=== PATIENT | male | born 1990 | race Two or more races ===

== ENCOUNTER 2021-05-07 13:29 | Outpatient (CLI) | payer OTHER ==
--- NOTE | 2021-05-07 14:41 | SLEEP CARE CONSULTATION ---
Information from patient questionnaire entered by Christy Hayes. I have reviewed and concur with the information entered by Christy Hayes. This document represents the service I personally performed and the decisions made by me, Ani Hawley ARNP. History of Present Illness Service Date and Time: 05/07/2021 1329 Reason for Visit: New patient Chief Complaint: reports: Unrefreshed sleep, Snoring, Excessive daytime sleepiness. denies: Observed pauses in breathing Date of Onset: 8 months Usual bedtime: 2 am Time it takes to fall asleep: 30-60 minutes Snores at night: Yes Observed to quit breathing while asleep: No Sleeps alone due to snoring: No Number of times waking at night: 2 Reasons for waking at night: reports: Snoring, Other (unknown reasons) Toss, Turn, or Twitch while sleeping: Yes Recalls having dreams: Yes Usually gets out of bed at: 10 am - 12 pm Feels refreshed in the morning: No Morning headache: No Sleepy or fatigued during the day: Yes Ever fallen asleep while driving: No (no drowsy driving) Takes day naps: No Dreams during day naps: No Prior sleep studies: No Additional HPI information: I had the pleasure of seeing NICKOLAS MEDRANO today regarding the possibility of him having a sleep disorder. His current complaints are unrefreshed sleep, snoring and excessive daytime sleepiness. He does not feel like is sleep is good, wakes up feeling tired. - Parasomnia Symptoms Ever been unable to move upon waking from sleep: Yes Walks in sleep: No Talks in sleep: No Ever acted out dreams in sleep: Yes Ever felt weak in the knees when startled or emotional: No Bothered by creepy, crawly, restless sensations in legs: No Problems with memory or concentration: Yes (mostly just trying to remember stuff) Subjective Initial [place] Sleepiness Scale score: 8 (in 2020) Past Medical History Past Medical History: reports: Other Social History The patient's occupation is a [employer]. Patient is Single and lives in [place]. Have you smoked in the past 12 months: No Cigarettes per day (20/pack): 10 Years of smokin Quit date: 05/2019 Smoking Pack Years: 2.0 Alcohol use: Yes Alcohol amount and frequency: 1 - 2 drinks weekly Caffeine use: Yes Caffeine amount and frequency: 1 drink daily Family History Family history of sleep disordered breathing: No Allergies and Home Medications Drug allergies reviewed: Yes (NKDA) Home medication list reviewed: Yes (Zyrtec daily; Melatonin for sleep as needed) Review of Systems Cardiovascular: denies: high blood pressure Gastrointestinal: reports: heartburn Neurological: denies: headaches Psychiatric: denies: anxiety, depression, mood disorder Ear/Nose/Throat: reports: nasal congestion, wisdom teeth removed. denies: injury to nose, tonsillectomy Endocrine: denies: thyroid disease Musculoskeletal: reports: neck pain Immunologic: reports: sneezing, allergies to food or environment (seasonal allergies) Physical Exam Blood Pressure: 120/85 Cuff size: wrist Heart Rate: 87 O2 Saturation: 97 Height: 5 ft 5 in Weight: 192 lb Body Mass Index: 31.9 BMI Classification: Obese Neck circumference: 17.25 (inches) Nostrils: patent to airflow Mouth and throat: narrow oropharynx Soft palate: long Hard palate: normal Uvula: normal Uvula visualization: 50% Mallampati Class II Tongue: enlarged in size with teeth johnston on lateral edges Tonsils: 2+ Neck: normal w/o lymphadenopathy or thyromegaly Heart: regular rate and rhythm Lungs: clear bilaterally Impression and Plan 1. Suspected Obstructive Sleep Apnea-Hypopnea Syndrome, as suggested by a history of loud and irregular snoring, unrefreshed sleep, cognitive impairment, and excessive daytime sleepiness. Narrow oropharynx and obesity are common predisposing factors for obstructive sleep apnea-hypopnea syndrome. I recommend proceeding to polysomnography to confirm the diagnosis and to assess severity. If the patient has significant sleep disordered breathing, a manual CPAP titration study will also be performed to find the optimal treatment pressure. I informed the patient of what the sleep studies involve and after some discussion, obtained agreement to proceed. The pathophysiology of obstructive sleep apnea-hypopnea syndrome was discussed with the patient and health risks of cardiovascular and cerebrovascular disease if not treated. AASM brochure for obstructive sleep apnea-hypopnea syndrome given and reviewed. 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 Patient agreed to plan. * Schedule polysomnography +- manual CPAP titration study and return in 1-2 weeks after the study to discuss result and initiate therapy. * Avoid long distance driving or driving when feeling sleepy. * Avoid alcohol, sedative and muscle relaxant around bedtime. * Attempt to lose weight. * Review instructions provided by trained office staff on how to prepare for the sleep study. * Return for follow-up after sleep study completed. Counseling Topics: Weight loss health impact Visit Type: In Office Time Spent with Patient (minutes): 30 Provider Statement: I spent 100% of the Face to Face Visit with the patient with greater than 50% spent counseling the patient and coordination of care.
[2021-05-07 14:42] VITALS: BP 120/85
== END 2021-05-07 13:30 | disposition home or self-care (01) ==
LOC: SC 13:29
PROVIDERS: ATTEND Nurse Practitioner Family
DX: G47.10 Hypersomnia, unspecified (principal); R06.83 Snoring; G47.8 Other sleep disorders; R41.89 Other symptoms and signs involving cognitive functions and awareness; E66.9 Obesity, unspecified; Z68.31 Body mass index [BMI] 31.0-31.9, adult
CPT/HCPCS: 99203; 99212

== ENCOUNTER 2021-05-13 13:50 | Outpatient (CLI) | payer OTHER | END 2021-05-13 13:51 | disposition home or self-care (01) | LOC: SC 13:50 | PROVIDERS: ATTEND Nurse Practitioner Family | DX: G47.33 Obstructive sleep apnea (adult) (pediatric) (principal); R09.02 Hypoxemia | CPT/HCPCS: 95806 ==

== ENCOUNTER 2021-05-22 13:36 | Outpatient (CLI) | payer OTHER ==
[2021-05-22 14:10] VITALS: BP 124/75
--- NOTE | 2021-05-22 14:10 | SLEEP CARE CONSULTATION ---
Information from patient questionnaire entered by Tracie Johnson. I have reviewed and concur with the information entered by Tracie Johnson. This document represents the service I personally performed and the decisions made by me, Ani Hawley ARNP. History of Present Illness Service Date and Time: 05/22/2021 1336 Initial [place] Sleepiness Scale score: 8 (in 2020) Current [place] Sleepiness Scale score: 4 Additional HPI information: NICKOLAS MEDRANO returns for follow up and results of the recently performed home sleep study. I explained the pathophysiology behind obstructive sleep apnea. We then spent quite a bit of time discussing different treatment options. For mild obstructive sleep apnea, surgery and oral appliance are alternatives to nasal CPAP therapy but in moderate or severe cases, nasal CPAP is the most effective and reliable treatment. I reviewed the impact of weight changes on sleep apnea and strongly recommended losing weight. After some discussion, the patient opted to go with the nasal CPAP therapy. Nasal autoCPAP set at 4-15 cmH20 will be ordered with rationale explained. A manual titration study will be ordered if unable to find optimal pressure with office adjustments. I explained how CPAP machine works with sample devices [employer] Dreamstation and [id number] and what to expect when using the machine. Using CPAP every night in order to get used to it was emphasized. Patient advised to put CPAP mask on before getting into bed so as not to fall asleep without CPAP. To assist acclimation to CPAP use, it could also be used for a short time during day while reading or watching TV. The patient was instructed to call the CPAP supplier to discuss any mechanical problem that may occur. If the mask given is uncomfortable or is difficult to keep on through the night even with adjustment, contact the CPAP supplier as many will replace with another mask style if notified before 30 days. If snoring or perceives is not getting enough air or too much air from the machine, notify this office. AASM patient education PAP tips reviewed and given to patient. Patient does not drink alcohol. Patient was cautioned about risks of drowsy driving until sleepiness symptoms resolve. Sleep Study - Results Type of Sleep Study: Home sleep study Prior sleep studies: Yes Year and Where: 05/2021 [facility] Care Polysomnography/Home Sleep Study results: Physician Impression: The quality of the study is good. The length of the study is not optimal (< 240 minutes). Please also see the tabulated and graphic data. 1. Obstructive Sleep Apnea-Hypopnea (ICD-10 G47.33), mild, with an AHI of 6.8/hr and oneal SaO2 of 89%. During the study, the patient had 2 apneas (2 obstructive, 0 central, 0 mixed) and 21 hypopneas. The longest episode lasted 91.5 seconds. The patient slept almost exclusively in supine position (supine AHI was 7.1 and non-supine, 0.00). 2. Hypoxemia (ICD-10 R09.02), mild, with the lowest oxygen saturation of 89 % and 0.0 minutes with SaO2 under 90%. Baseline oxygen saturation was normal (Average oxygen saturation was 95%). Allergies and Home Medications Home medication list reviewed: Yes (Tricor started 1 week ago) Review of Systems Review of systems same as previous: Yes (no changes) Physical Exam Blood Pressure: 124/75 Heart Rate: 98 O2 Saturation: 97 Height: 5 ft 5 in Weight: 193 lb (with boots) Body Mass Index: 32.1 BMI Classification: Obese Impression and Plan 1. Obstructive Sleep Apnea-Hypopnea Syndrome, mild, with lowest oxygen saturation of 89%. Obviously this is the cause of the patients symptoms of unrefreshed sleep, and excessive daytime sleepiness. Positive pressure therapy could benefit his overall health and reduce risks for cardiovascular and cerebrovascular adverse events. As mentioned above, the patient will be started on nasal autoCPAP therapy with pressure set at 4-15 cmH2O. A manual titration study will be completed if unable to find optimal treatment pressure with office adjustments. Compliance guidelines also reviewed. A copy of compliance guidelines will be given for reference at check out. Patient has been trying to change his diet and exercise more to lose weight. I advised him to continue to try to lose weight. 2. Hypoxemia, mild, with the lowest oxygen saturation of 89 % and 0.0 minutes with SaO2 under 90%. His baseline oxygen saturation was normal with an average oxygen saturation of 95%. * Nasal auto CPAP therapy, pressure at 4-15 cm H2O. * Continue to try to lose weight. * Avoid alcohol consumption near bedtime. * Avoid supine sleep until using CPAP. * The patient is again cautioned about driving until sleepiness completely resolves. * Return one month after CPAP obtained. I will assess response to therapy and compliance at that time. Counseling Topics: Weight loss health impact Visit Type: In Office Time Spent with Patient (minutes): 20 Provider Statement: I spent 100% of the Face to Face Visit with the patient with greater than 50% spent counseling the patient and coordination of care.
== END 2021-05-22 13:37 | disposition home or self-care (01) ==
LOC: SC 13:36
PROVIDERS: ATTEND Nurse Practitioner Family
DX: G47.33 Obstructive sleep apnea (adult) (pediatric) (principal); R09.02 Hypoxemia; E66.9 Obesity, unspecified; Z68.32 Body mass index [BMI] 32.0-32.9, adult
CPT/HCPCS: 99212; 99213

== ENCOUNTER 2021-10-15 22:12 | Outpatient (CLI) | payer OTHER | END 2021-10-15 22:13 | disposition EMS.NT | LOC: EMS 22:12 | DX: R09.89 Other specified symptoms and signs involving the circulatory and respiratory systems (principal); F41.9 Anxiety disorder, unspecified ==

== ENCOUNTER 2021-10-15 23:06 | Emergency (ER) | payer OTHER ==
[2021-10-15] MEDS ORDERED: SODIUM CHLORIDE 0.9% 1,000 ML IV STA (23:24)
--- NOTE | 2021-10-15 23:43 | ED Physician Documentation ---
History of Present Illness - Stated complaint Stated Complaint: CHEST DISCOMFORT - Chief complaint Chief Complaint: Cardiac - History obtained from History obtained from: Patient - Additonal information Additional information: The patient comes to the emergency department chief complaint of palpitations that started this evening while he was working at his computer. Patient states that he felt a couple of scabs, and wondered what was going on, so he decided to look the symptoms up on the Internet. After reading about possible causes of the symptoms, the patient became anxious and began to have a panic attack. He states that he felt his heart racing and it made it worse, so he called EMS. The patient decided to come here by private vehicle, but states that he continues to have a bit of the feeling of his heart racing, though he is not quite as anxious as he was. Patient denies chest pain or shortness of breath. He has some mild nausea. He states this is never happened before. No thyroid issues. No recent long trips. The patient does note that he has been spending a lot of time sitting because he was in quarantine for upper respiratory symptoms, and also, he is been taking a computer class which keeps him sitting down for long periods each day. The patient has not noticed any calf swelling or pain. 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 The patient denies any vomiting or diarrhea recently. He states he was feeling fine earlier in the day and is feeling fine other than his current symptoms. Review of Systems Ten Systems: 10 systems reviewed and negative Constitutional: reports: Reviewed and negative Eyes: reports: Reviewed and negative Ears: reports: Reviewed and negative Nose: reports: Reviewed and negative Throat: reports: Reviewed and negative Cardiac: reports: Palpitations Respiratory: reports: Reviewed and negative GI: reports: Reviewed and negative : reports: Reviewed and negative Skin: reports: Reviewed and negative Musculoskeletal: reports: Reviewed and negative Neurologic: reports: Reviewed and negative Psychiatric: reports: Anxiety Endocrine: reports: Reviewed and negative Immunocompromised: reports: Reviewed and negative PD PAST MEDICAL HISTORY - Past Medical History Past Medical History: Yes Cardiovascular: High cholesterol Respiratory: None Neuro: None Endocrine/Autoimmune: None GI: None : None HEENT: None Psych: None Musculoskeletal: None Derm: None - Past Surgical History Past Surgical History: Yes General: Other Ortho: Other - Present Medications Home Medications: Ambulatory Orders Medication Instructions Recorded Confirmed Propranolol [Inderal] 20 mg PO BID PRN #20 tablet 10/16/21 - Allergies Allergies/Adverse Reactions: Allergies Allergy/AdvReac Type Severity Reaction Status Date / Time No Known Drug Allergies Allergy Verified 10/15/21 23:19 - Social History Does the pt smoke?: No Smoking Status: Never smoker Does the pt drink ETOH?: No Does the pt have substance abuse?: No - Immunizations Immunizations are current?: No - POLST Patient has POLST: No PD ED PE NORMAL - Vitals Vital signs reviewed: Yes - General General: Alert and oriented X 3, No acute distress, Well developed/nourished - HEENT HEENT: Atraumatic, PERRL, EOMI, Moist mucous membranes - Neck Neck: Supple, no meningeal sign - Cardiac Cardiac: No murmur, Other (Tachycardic, regular rate and rhythm.) - Respiratory Respiratory: No respiratory distress, Clear bilaterally - Abdomen Abdomen: Soft, Non tender, Non distended - Derm Derm: Normal color, Warm and dry, No rash - Extremities Extremities: No deformity, No edema, No calf tenderness / cord - Neuro Neuro: Alert and oriented X 3, able bodied seaman 2-12 intact, Normal speech - Psych Psych: Normal mood, Normal affect Results - Vitals Vitals: Vital Signs - 24 hr 10/15/21 10/15/21 10/15/21 23:09 23:19 23:30 Temperature 36.2 C L Heart Rate 115 H 115 H 110 H Respiratory 16 16 17 Rate Blood Pressure 148/93 H 140/86 H O2 Saturation 97 97 96 10/16/21 10/16/21 10/16/21 00:00 00:41 01:15 Temperature Heart Rate 114 H 94 94 Respiratory 20 15 15 Rate Blood Pressure 134/83 H 133/87 H 126/84 H O2 Saturation 97 97 97 10/16/21 10/16/21 01:32 01:36 Temperature Heart Rate Respiratory 15 15 Rate Blood Pressure 129/85 H O2 Saturation Oxygen O2 Source Room air - EKG (time done) 2315 Rate: Rate (enter#) (119) Rhythm: Sinus tachycardia [place]: Normal Intervals: Normal [place] QRS: Normal Ischemia: Normal ST segments, Non specific changes Compare to prior EKG: Old EKG unavailable Computer interpretation: Agree with computer - Labs Labs: Laboratory Tests 10/15/21 10/15/2122 23:44 23:44 23:44 WBC 10.3 RBC 5.67 Hgb 16.8 Hct 47.0 MCV 82.9 MCH 29.6 MCHC 35.7 RDW 12.7 Plt Count 225 MPV 9.7 Neut # (Auto) 7.7 H Lymph # (Auto) 1.9 [place] # (Auto) 0.6 Eos # (Auto) 0.1 Baso # (Auto) 0.0 Absolute Nucleated RBC 0.00 Nucleated RBC % 0.0 D-Dimer Sodium 137 Potassium 3.9 Chloride 101 Carbon Dioxide 24 Anion Gap 12.0 BUN 12 Creatinine 1.0 Estimated GFR (MDRD) 87 L Glucose 122 H Calcium 9.5 Total Bilirubin 0.7 AST 19 ALT 35 Alkaline Phosphatase 53 Total Protein 7.4 Albumin 4.3 Globulin 3.1 Albumin/Globulin Ratio 1.4 Lipase 40 TSH 1.88 10/15/21 23:54 WBC RBC Hgb Hct MCV MCH MCHC RDW Plt Count MPV Neut # (Auto) Lymph # (Auto) [place] # (Auto) Eos # (Auto) Baso # (Auto) Absolute Nucleated RBC Nucleated RBC % D-Dimer 268.4 H Sodium Potassium Chloride Carbon Dioxide Anion Gap BUN Creatinine Estimated GFR (MDRD) Glucose Calcium Total Bilirubin AST ALT Alkaline Phosphatase Total Protein Albumin Globulin Albumin/Globulin Ratio Lipase TSH PD MEDICAL DECISION MAKING - ED course Complexity details: reviewed results, re-evaluated patient, considered differential, d/w patient ED course: The patient was well-appearing but was tachycardic on exam. He was placed on the color television console monitor which showed a narrow complex rhythm with a tachycardic rate. EKG showed sinus tachycardia with a regular rhythm. I felt the patient should be worked up for his symptoms, so laboratory studies were ordered. The patient did admit to not drinking enough water, so I gave him some IV fluids, as well. I also give the patient dose of propranolol in the emergency department. The patient improved after the propranolol and was found to be in normal sinus rhythm with a normal rate on reevaluation. His labs were unremarkable except for his D-dimer, which was elevated. The patient was sent for CT angiogram of the chest which was negative. On reevaluation, the patient was doing well and his heart rate had normalized. I discussed with him that this may be a one-time event that never happens again, but just in case, I will give him prescription for some propranolol that he may take as needed if he gets another episode. I discussed that if he has further episodes, he is going to need to talk to his primary doctor about having a cardiology referral. At this point in time, he is stable for discharge home and we have discussed the usual indications for return. Departure - Departure Disposition: 01 Home, Self Care Clinical Impression: Palpitations, Sinus tachycardia Condition: Stable Instructions: ED Palpitations Prescriptions: Propranolol [Inderal] 20 mg PO BID PRN #20 tablet PRN Reason: Cardiac Arrhythmia Comments: Your labs, overall, look good. Your electrolytes are normal, as is your thyroid stimulating hormone. The D-dimer, which is the test we used to screen for possible blood clot, was positive, so you were sent for a CT angiogram of the chest. This was negative for blood clot. You responded well to the medicine we gave you today, and it is not exactly clear why your heart suddenly raced. It is possible that this was somewhat related to anxiety that came up after you felt the palpitations, but since this was sustained for quite a while, it is important that you seek follow-up if it happens again. I will give you a prescription for the same medication we gave you here, is that if the heart racing it happens again, you may control the symptoms. However, it is very important to make a follow-up appointment with your primary care physician to discuss referral to cardiology if you have further episodes. Your prescription has been electronically transmitted to the [facility] pharmacy in [place].
[2021-10-15] MEDS ORDERED: PROPRANOLOL 10 MG TABLET PO STA (23:46)
[2021-10-15 23:48] LABS: BASOPHILS % (AUTO) 0.4 %; EOSINOPHILS # (AUTO) 0.1 10^3/uL (0.0-0.7); EOSINOPHILS % (AUTO) 0.8 %; HGB - HEMOGLOBIN 16.8 g/dL (14.0-18.0); LYMPHOCYTES # (AUTO) 1.9 10^3/uL (1.5-3.5); LYMPHOCYTES % (AUTO) 17.9 %; MEAN CORPUSCULAR HEMOGLOBIN 29.6 pg (27.0-31.0); MEAN CORPUSCULAR HGB CONC 35.7 g/dL (32.0-36.0); MEAN CORPUSCULAR VOLUME 82.9 fL (80.0-94.0); MEAN PLATELET VOLUME 9.7 fL (7.4-11.4); MONOCYTES # (AUTO) 0.6 10^3/uL (0.0-1.0); MONOCYTES % (AUTO) 5.9 %; NEUTROPHILS # (AUTO) 7.7 10^3/uL (1.5-6.6); NEUTROPHILS % (AUTO) 74.3 %; PLT - PLATELET COUNT 225 10^3/uL (130-450); RED BLOOD COUNT 5.67 10^6/uL (4.70-6.10); RED CELL DISTRIBUTION WIDTH 12.7 % (12.0-15.0); WHITE BLOOD COUNT 10.3 x10^3/uL (4.8-10.8)
[2021-10-16 00:02] LABS: ALBUMIN 4.3 g/dL (3.2-5.5); ALBUMIN/GLOBULIN RATIO 1.4 (1.0-2.2); BILIRUBIN,TOTAL 0.7 mg/dL (0.2-1.0); CALCIUM 9.5 mg/dL (8.5-10.3); POTASSIUM 3.9 mmol/L (3.5-5.0); TOTAL PROTEIN 7.4 g/dL (6.7-8.2)
[2021-10-16] MEDS ORDERED: IOVERSOL 320 100 ML VIAL IVP ONE (00:43)
--- NOTE | 2021-10-16 01:13 | CT Report ---
PROCEDURE: ANGIO CHEST W/WO INDICATIONS: Tachycardia, elev d-dimer CONTRAST: IV CONTRAST: Optiray 320. TECHNIQUE: After the administration of intravenous contrast, 2 mm axial images were acquired from the pulmonary apices to the posterior costophrenic angles during the arterial phase. In addition, 1 mm lung kernel and 5 mm soft tissue kernel reconstructions were performed. 3-dimensional coronal oblique maximum int ensity projection (MIP) reformats, 8 mm axial MIP, and 5 mm coronal and sagittal MPR reformats were t hen performed through the thorax. For radiation dose reduction, the following was used: automated exp osure control, adjustment of mA and/or kV according to patient size. COMPARISON: None. FINDINGS: Image quality: Excellent. Pulmonary arteries: Pulmonary arteries are normal in size, and demonstrate no intraluminal filling d efects to suggest central pulmonary embolism. Lungs and pleura: Lungs are clear. No pleural effusions or pneumothorax. Central and peripheral ai rways are patent. Mediastinum: Heart size is normal, without pericardial effusion. No mediastinal or hilar adenopathy . Thoracic aorta is normal in caliber and enhancement. Esophagus is normal in caliber, without hiat al hernia. Bones and chest wall: No suspicious bony lesions. Ribs and thoracic spine appear intact throughout. No axillary or supraclavicular adenopathy. The thyroid is normal in size and there are no incident al findings. Abdomen: Visualized upper abdominal solid organs appear normal in the early arterial phase of enhanc ement. IMPRESSION: No evidence for pulmonary embolism. Reviewed by: Felicita Webb MD on 10/16/2021 1:13 AM [facility] Approved by: Felicita Webb MD on 10/16/2021 1:13 AM PST Station ID: [id number]
[2021-10-16 01:32] VITALS: BP 129/85
== END 2021-10-16 01:52 | disposition home or self-care (01) ==
LOC: ED 23:06
DX: R00.2 Palpitations (principal); R00.0 Tachycardia, unspecified
CPT/HCPCS: 36415; 71275; 80053; 83690; 84443; 85025; 85379; 93005; 99283; 99284; A9270; Q9967